=== PATIENT | female | born 1950 | race Caucasian/White ===

== ENCOUNTER 2020-10-04 11:11 | Outpatient (REF) | payer MEDICARE, OTHER, MEDICAID, SELFPAY ==
--- NOTE | 2020-10-04 11:49 | XR_ITS ---
EXAMINATION: XR ELBOW, RIGHT CLINICAL INFORMATION: Right elbow pain COMPARISON: None TECHNIQUE: AP, lateral, and oblique views of the right elbow. FINDINGS: The bones and soft tissues are normal. No fracture or joint effusion. Alignment is anatomic. Joint spaces are maintained. XR/XR elbow RT min 3V IMPRESSION: No evidence of fracture or dislocation.
== END 2020-10-04 11:12 | disposition home or self-care (01) ==
LOC: HO.XRAY 11:11
PROVIDERS: PCP Internal Medicine; Visit Provider Internal Medicine
DX: M25.521 Pain in right elbow (principal)
CPT/HCPCS: 73080

== ENCOUNTER → 2020-11-29 12:09 | Outpatient (BNVA) | payer MEDICARE, OTHER, SELFPAY | PROVIDERS: PCP Internal Medicine; Visit Provider Physician Assistant | DX: M77.11 Lateral epicondylitis, right elbow (principal) | CPT/HCPCS: 99202 ==

== ENCOUNTER 2021-03-25 10:33 | Outpatient (REF) | payer MEDICARE, SELFPAY ==
[2021-03-25 10:51] LABS: COVID-19 Test Negative (Negative)
== END 2021-03-25 10:34 | disposition home or self-care (01) ==
LOC: HO.LAB 10:33
PROVIDERS: Visit Provider Internal Medicine
DX: Z20.822 Contact with and (suspected) exposure to COVID-19 (principal)
CPT/HCPCS: 36415; 87635; C9803

== ENCOUNTER 2021-05-09 08:49 | Outpatient (REF) | payer MEDICARE, SELFPAY ==
--- NOTE | ~2021-05-09 | XR_ITS ---
EXAMINATION: XR CHEST CLINICAL INFORMATION: Rest before and COMPARISON: None TECHNIQUE: 2 views of the chest were obtained. FINDINGS: The cardiac and mediastinal contours are normal. The lungs are well inflated. The lungs are clear. There is no pleural effusion or pneumothorax. Bony structures are unremarkable. XR/XR chest 2V IMPRESSION: Well-inflated lungs. No evidence for acute disease in the chest.
== END 2021-05-09 08:50 | disposition home or self-care (01) ==
LOC: HO.XRAY 08:49
PROVIDERS: PCP Internal Medicine; Visit Provider Internal Medicine
DX: R49.9 Unspecified voice and resonance disorder (principal)
CPT/HCPCS: 71046

== ENCOUNTER 2021-06-27 08:37 | Outpatient (REF) | payer MEDICARE, OTHER, SELFPAY | END 2021-06-27 08:38 | disposition home or self-care (01) | LOC: HO.LAB 08:37 | PROVIDERS: PCP Internal Medicine; Visit Provider Internal Medicine | DX: Z20.822 Contact with and (suspected) exposure to COVID-19 (principal) | CPT/HCPCS: C9803; U0003; U0005 ==

== ENCOUNTER 2021-07-25 09:45 | Outpatient (RCR) | payer MEDICARE, OTHER, MEDICAID, SELFPAY | END 2021-08-15 09:55 | disposition home or self-care (01) | LOC: HO.OT 09:45 | PROVIDERS: PCP Internal Medicine; Visit Provider Physician Assistant | DX: M77.11 Lateral epicondylitis, right elbow (principal) | CPT/HCPCS: 97165 ==

== ENCOUNTER 2021-10-14 09:06 | Outpatient (REF) | payer MEDICARE, OTHER, MEDICAID, SELFPAY | END 2021-10-14 09:07 | disposition home or self-care (01) | LOC: HO.LAB 09:06 | PROVIDERS: PCP Internal Medicine; Visit Provider Internal Medicine | DX: Z20.822 Contact with and (suspected) exposure to COVID-19 (principal) | CPT/HCPCS: C9803; U0003; U0005 ==

== ENCOUNTER 2022-03-04 11:35 | Outpatient (REF) | payer MEDICARE, OTHER, MEDICAID, SELFPAY ==
--- NOTE | ~2022-03-04 | MM_ITS ---
EXAMINATION: MM SCREENING DIGITAL BREAST TOMOSYNTHESIS, BILATERAL CLINICAL INFORMATION: Screening. Asymptomatic. The lifetime risk of breast cancer based on the Tyrer-Cuzick Model is 2%. COMPARISON: Mammography: 01/23/2020, 01/14/2020, 03/26/2018 TECHNIQUE: Digital breast tomosynthesis is performed in both the craniocaudal and mediolateral oblique views along with computer-aided detection (CAD). Synthesized 2D images are generated from the tomosynthesis. FINDINGS: There are scattered areas of fibroglandular density (ACR BI-RADS breast composition Category b). Parenchymal pattern is similar to prior studies. There is no developing density or interval mass or architectural abnormality. There are no abnormal calcifications. The skin contours are smooth. MM/MM tomosynthesis screening BI IMPRESSION: No mammographic evidence of malignancy. ASSESSMENT: BI-RADS 1: Negative RECOMMENDATION: Routine annual mammography screening. This patient's information was entered into a reminder system with a target due date for their next mammogram.
== END 2022-03-04 11:36 | disposition home or self-care (01) ==
LOC: HO.MAMMO 11:35
PROVIDERS: PCP Internal Medicine; Visit Provider Internal Medicine
DX: Z12.31 Encounter for screening mammogram for malignant neoplasm of breast (principal)
CPT/HCPCS: 77063; 77067

== ENCOUNTER 2022-03-21 09:38 | Outpatient (REF) | payer MEDICARE, OTHER, MEDICAID, SELFPAY ==
[2022-03-21 10:10] LABS: MANUAL DIFF FLAG NO
[2022-03-21 10:34] LABS: Basophils Percent Auto 0.8 % (0-2); Eosinophils Absolute Auto 0.1 X10*3/uL (0.0-0.4); Eosinophils Percent Auto 2.2 % (0-4); Hematocrit 35.9 % (37.0-47.0); Hemoglobin 11.6 g/dl (12.0-16.0); Imm Gran Abs Auto 0.01 X10*3/uL (0.00-0.03); Imm Gran Pct Auto 0.2 % (0.0-0.4); Lymphocytes Absolute Auto 1.7 X10*3/uL (1.2-4.9); Lymphocytes Percent Auto 33.4 % (20-40); Mean Corpuscular HGB Conc 32.3 g/dl (31.0-35.0); Mean Corpuscular Hemoglobin 30.5 pg (27.0-33.0); Mean Corpuscular Volume 94.5 fL (80.0-98.0); Mean Platelet Volume 10.2 fL (9.4-12.3); Monocytes Absolute Auto 0.5 X10*3/uL (0.1-1.2); Monocytes Percent Auto 9.7 % (2-11); Neutrophils Absolute Auto 2.7 x10*3/uL (2.0-8.3); Neutrophils Percent Auto 53.7 % (45-73); Platelet Count 243 X10*3/uL (160-400); Red Cell Distribution Width 12.8 % (11.0-16.0)
[2022-03-21 10:45] LABS: Alanine Aminotransferase 15 U/L (0-31); Albumin Level 4.1 g/dL (3.5-5.0); Alkaline Phosphatase 81 U/L (39-117); Anion Gap 13 (12-20); Aspartate Amino Transferase 25 U/L (5-31); Bilirubin Total 0.5 mg/dL (0.0-1.0); Blood Urea Nitrogen 20 mg/dL (9-16); Calcium 9.9 mg/dL (8.4-10.2); Carbon Dioxide 24 mmol/L (22-29); Chloride 108 mmol/L (96-108); Cholesterol 249 mg/dL; Estimated Glomerular Filt Rate > 60; Glucose Random 106 mg/dL (60-115); HDL Cholesterol 79 mg/dL; LDL Cholesterol Calculated 159 mg/dl; Potassium 4.7 mmol/L (3.3-5.1); Sodium 140 mmol/L (135-145); Total Protein 6.9 g/dL (6.5-8.0); Triglycerides 56 mg/dL
[2022-03-21 10:54] LABS: Appearance Urine CLEAR; Color Urine YELLOW; Glucose Urine UA NEG (NEG); Leukocyte Esterase Urine NEG (NEG); Nitrite Urine NEG (NEG); PH 5.5 (5.0-8.0); Specific Gravity - Urine 1.025 (1.005-1.025); Urine Blood NEG (NEG); Urine Ketones NEG (NEG); Urine Protein NEG (NEG-TRACE)
== END 2022-03-21 09:39 | disposition home or self-care (01) ==
LOC: HO.LAB 09:38
PROVIDERS: PCP Internal Medicine; Visit Provider Internal Medicine
DX: E78.00 Pure hypercholesterolemia, unspecified (principal); D64.9 Anemia, unspecified; K57.90 Diverticulosis of intestine, part unspecified, without perforation or abscess without bleeding; R30.0 Dysuria
CPT/HCPCS: 36415; 80053; 80061; 81003; 85025

== ENCOUNTER 2022-07-17 09:47 | Outpatient (REF) | payer OTHER, SELFPAY ==
[2022-07-17 11:07] LABS: Cholesterol 223 mg/dL; HDL Cholesterol 77 mg/dL; LDL Cholesterol Calculated 133 mg/dl; Triglycerides 65 mg/dL
== END 2022-07-17 09:48 | disposition home or self-care (01) ==
LOC: HO.LAB 09:47
PROVIDERS: PCP Internal Medicine; Visit Provider Internal Medicine
DX: E78.00 Pure hypercholesterolemia, unspecified (principal)
CPT/HCPCS: 36415; 80061

== ENCOUNTER 2023-01-19 10:12 | Outpatient (REF) | payer OTHER, SELFPAY ==
[2023-01-21 12:09] LABS: HPV mRNA E6/E7 rflx Not Detected (Not Detected)
== END 2023-01-19 10:13 | disposition home or self-care (01) ==
LOC: HO.LNP 10:12
PROVIDERS: PCP Internal Medicine; Visit Provider Advanced Practice Midwife
DX: Z01.419 Encounter for gynecological examination (general) (routine) without abnormal findings (principal); Z11.51 Encounter for screening for human papillomavirus (HPV)
CPT/HCPCS: 87624; 88142

== ENCOUNTER 2023-01-19 12:42 | Outpatient (REF) | payer OTHER, SELFPAY ==
--- NOTE | ~2023-01-19 | XR_ITS ---
EXAMINATION: XR CHEST 2 VIEWS CLINICAL INFORMATION: Weight loss and lymphadenopathy. COMPARISON: Radiographs dated 05/09/2021. TECHNIQUE: Frontal and lateral views of the chest were obtained. FINDINGS: The heart, great vessels, pulmonary vasculature and mediastinum are normal. The lungs show no focal infiltrate, effusion or pneumothorax. There is no mass, nodule or thoracic lymphadenopathy. There is no acute osseous abnormality. XR/XR chest 2V IMPRESSION: No active cardiopulmonary disease.
[2023-01-19 13:36] LABS: MANUAL DIFF FLAG NO
[2023-01-19 13:45] LABS: Basophils Percent Auto 0.8 % (0-2); Eosinophils Percent Auto 0.8 % (0-4); Hematocrit 33.2 % (37.0-47.0); Hemoglobin 11.2 g/dl (12.0-16.0); Imm Gran Abs Auto 0.01 X10*3/uL (0.00-0.03); Imm Gran Pct Auto 0.2 % (0.0-0.4); Lymphocytes Percent Auto 38.1 % (20-40); Mean Corpuscular HGB Conc 33.7 g/dl (31.0-35.0); Mean Corpuscular Hemoglobin 31.4 pg (27.0-33.0); Mean Platelet Volume 9.9 fL (9.4-12.3); Monocytes Absolute Auto 0.5 X10*3/uL (0.1-1.2); Monocytes Percent Auto 8.8 % (2-11); Neutrophils Absolute Auto 2.6 x10*3/uL (2.0-8.3); Neutrophils Percent Auto 51.3 % (45-73); Platelet Count 221 X10*3/uL (160-400); Red Blood Count 3.57 X10*6/uL (4.20-5.50); Red Cell Distribution Width 12.9 % (11.0-16.0); White Blood Count 5.1 X10*3/uL (4.8-10.8)
[2023-01-19 14:11] LABS: Alanine Aminotransferase 16 U/L (0-31); Albumin Level 4.2 g/dL (3.5-5.0); Alkaline Phosphatase 75 U/L (39-117); Anion Gap 12 (12-20); Aspartate Amino Transferase 24 U/L (5-31); Bilirubin Total 0.4 mg/dL (0.0-1.0); Blood Urea Nitrogen 19 mg/dL (9-16); C Reactive Protein < 0.10 mg/dL (< or = 0.50); Calcium 9.4 mg/dL (8.4-10.2); Carbon Dioxide 28 mmol/L (22-29); Chloride 107 mmol/L (96-108); Estimated Glomerular Filt Rate > 60; Glucose Random 96 mg/dL (60-115); Lactate Dehydrogenase 219 U/L (122-220); Potassium 4.5 mmol/L (3.3-5.1); Sodium 142 mmol/L (135-145); Total Protein 6.5 g/dL (6.5-8.0)
== END 2023-01-19 12:43 | disposition home or self-care (01) ==
LOC: HO.10HDL 12:42
PROVIDERS: Visit Provider Internal Medicine
DX: R63.4 Abnormal weight loss (principal); M54.2 Cervicalgia; R59.1 Generalized enlarged lymph nodes
CPT/HCPCS: 36415; 71046; 80053; 83615; 85025; 86140

== ENCOUNTER 2023-02-16 09:29 | Outpatient (REF) | payer OTHER, SELFPAY ==
[2023-02-16 11:08] LABS: Cholesterol 235 mg/dL; HDL Cholesterol 77 mg/dL; LDL Cholesterol Calculated 144 mg/dl; Triglycerides 73 mg/dL
== END 2023-02-16 09:30 | disposition home or self-care (01) ==
LOC: HO.LAB 09:29
PROVIDERS: PCP Internal Medicine; Visit Provider Internal Medicine
DX: E78.00 Pure hypercholesterolemia, unspecified (principal)
CPT/HCPCS: 36415; 80061

== ENCOUNTER 2023-02-16 11:38 | Outpatient (REF) | payer OTHER, SELFPAY ==
[2023-02-16 14:03] LABS: MANUAL DIFF FLAG NO
[2023-02-16 14:19] LABS: Appearance Urine Clear; Color Urine Yellow; Glucose Urine UA Negative (Negative); Leukocyte Esterase Urine Trace (Negative); Nitrite Urine Negative (Negative); PH 7.5 (5.0-9.0); Specific Gravity - Urine <= 1.005 (1.005-1.025); UMIC TRIGGER UACC YES; Urine Blood Negative (Negative); Urine Ketones Negative (Negative); Urine Protein Negative (Neg-Trace)
[2023-02-16 14:21] LABS: Bacteria Urine None Seen (None Seen); Hyaline Casts Urine 0-2 /LPF (0-2); RBC Urine 0-2 /HPF (0-2); Squamous Epithelial Cell Urine 0-2 /HPF (0-2); WBC Urine 0-5 /HPF (0-5)
[2023-02-16 14:25] LABS: Basophils Percent Auto 0.9 % (0-2); Eosinophils Absolute Auto 0.1 X10*3/uL (0.0-0.4); Eosinophils Percent Auto 1.7 % (0-4); Hematocrit 36.3 % (37.0-47.0); Hemoglobin 11.9 g/dl (12.0-16.0); Lymphocytes Absolute Auto 1.5 X10*3/uL (1.2-4.9); Lymphocytes Percent Auto 31.7 % (20-40); Mean Corpuscular HGB Conc 32.8 g/dl (31.0-35.0); Mean Corpuscular Hemoglobin 30.5 pg (27.0-33.0); Mean Corpuscular Volume 93.1 fL (80.0-98.0); Mean Platelet Volume 10.9 fL (9.4-12.3); Monocytes Absolute Auto 0.5 X10*3/uL (0.1-1.2); Monocytes Percent Auto 10.9 % (2-11); Neutrophils Absolute Auto 2.5 x10*3/uL (2.0-8.3); Neutrophils Percent Auto 54.8 % (45-73); Platelet Count 217 X10*3/uL (160-400); Red Cell Distribution Width 12.4 % (11.0-16.0); White Blood Count 4.6 X10*3/uL (4.8-10.8)
[2023-02-16 14:45] LABS: Iron 44 mcg/dL (30-160); Percent Iron Saturation 17 % (15-50); Total Iron Binding Capacity 256 mcg/dL (228-428); Unsaturated Iron Binding 212 ug/dL
[2023-02-16 14:55] LABS: Vitamin B12 656 pg/mL (200-900)
== END 2023-02-16 11:39 | disposition home or self-care (01) ==
LOC: HO.10HDL 11:38
PROVIDERS: Visit Provider Internal Medicine
DX: D64.9 Anemia, unspecified (principal); R30.0 Dysuria
CPT/HCPCS: 36415; 81001; 81003; 82607; 83540; 85025; 87086

== ENCOUNTER 2023-03-31 12:11 | Outpatient (REF) | payer OTHER, SELFPAY ==
--- NOTE | ~2023-03-31 | MM_ITS ---
EXAMINATION: BONE DENSITOMETRY CLINICAL INDICATION: Asymptomatic menopausal state. COMPARISON: Baseline BD dated 10/20/2018. TECHNIQUE: Using a tarpipe DXA System (software version: 13.1) manufactured by [employer], dual-energy x-ray absorptiometry was performed of the lumbar spine and left hip. The images are of good technical quality. Summary results are attached. FINDINGS: AP SPINE L1-L4: Current: BMD 1.280 g/cm2, Z-score 3.1, T-score 0.8, normal, 6.8% decrease from baseline (<5% change is not significant). Baseline: BMD 1.374 g/cm2. LEFT FEMUR, NECK: Current: BMD 0.709 g/cm2, Z-score -0.1, T-score -2.4, osteopenia. Baseline: BMD 0.799 g/cm2. LEFT FEMUR, TOTAL: Current: BMD 0.704 g/cm2, Z-score 0.3, T-score -2.4, osteopenia, 11.0% decrease from baseline (<5% change is not significant). Baseline: BMD 0.791 g/cm2. IDENTIFIED RISK FACTORS: Secondary osteoporosis (early menopause). HISTORY OF FRACTURE: None listed. MEDICATIONS: Calcium supplement and/or multivitamin. Vitamin D. MM/XR DEXA axial skeleton IMPRESSION: 1. DIAGNOSIS: Osteopenia based on the lowest T-score value of -2.4 in the femoral neck and total femur applying World Health Organization criteria. 2. 10-YEAR FRACTURE RISK PREDICTION, FRAX: Major osteoporotic fracture (clinical spine, forearm, hip or shoulder) 13.1%. Hip fracture 4.1%. 3. Treatment Recommendations: NOF guidelines recommend consideration for treatment in postmenopausal women and men age 50 and older presenting with the following: -A hip or vertebral (clinical or morphometric) fracture. -T-score less than or equal to -2.5 at the femoral neck or spine after appropriate evaluation to exclude secondary causes. -Low bone mass at the hip or spine and a 10-year fracture probability by FRAX of greater than or equal to 3% for hip fracture or greater than or equal to 20% for major osteoporotic fracture based on the [place] adapted WHO algorithm. 4. Other Recommendations: All treatment decisions require clinical judgment and consideration of individual patient factors, including patient preferences, comorbidities, previous drug use, risk factors not captured in the FRAX model (e.g. frailty, falls, vitamin D deficiency, increased bone turnover, interval significant decline in bone density) and possible under or overestimation of fracture risk by FRAX. Additional medical evaluation for secondary cause of low bone mineral density may be appropriate. FUTURE SCAN RECOMMENDATION: People with diagnosed cases of osteoporosis or at high risk for fracture should have regular bone mineral density tests. For patients eligible for Medicare, routine testing is allowed once every 2 years. The testing frequency can be increased to one year for patients who have rapidly progressing disease, those who are receiving or discontinuing medical therapy to restore bone mass, or have additional risk factors.
--- NOTE | ~2023-03-31 | MM_ITS ---
EXAMINATION: MM SCREENING DIGITAL BREAST TOMOSYNTHESIS, BILATERAL CLINICAL INFORMATION: Screening. Asymptomatic. The lifetime risk of breast cancer based on the Tyrer-Cuzick Model is 2%. COMPARISON: Mammography: 03/04/2022, 01/23/2020, 01/14/2020, 03/26/2018 TECHNIQUE: Digital breast tomosynthesis is performed in both the craniocaudal and mediolateral oblique views along with computer-aided detection (CAD). Synthesized 2D images are generated from the tomosynthesis. FINDINGS: There are scattered areas of fibroglandular density (ACR BI-RADS breast composition Category b). There are no significant masses, abnormal calcifications, or other abnormalities. No architectural abnormality or developing density or significant change from prior studies. The axilla and skin contours are unremarkable. MM/MM tomosynthesis screening BI IMPRESSION: No mammographic evidence of malignancy. ASSESSMENT: BI-RADS 1: Negative RECOMMENDATION: Routine annual mammography screening. This patient's information was entered into a reminder system with a target due date for their next mammogram.
== END 2023-03-31 12:12 | disposition home or self-care (01) ==
LOC: HO.MAMMO 12:11
PROVIDERS: PCP Internal Medicine; Visit Provider Internal Medicine
DX: Z12.31 Encounter for screening mammogram for malignant neoplasm of breast (principal); Z13.820 Encounter for screening for osteoporosis; Z78.0 Asymptomatic menopausal state
CPT/HCPCS: 77063; 77067; 77080

== ENCOUNTER 2023-07-21 09:08 | Outpatient (REF) | payer OTHER, SELFPAY ==
[2023-07-21 09:24] LABS: MANUAL DIFF FLAG NO
[2023-07-21 09:58] LABS: Basophils Absolute Auto 0.1 X10*3/uL (0.0-0.2); Basophils Percent Auto 1.2 % (0-2); Eosinophils Absolute Auto 0.2 X10*3/uL (0.0-0.4); Eosinophils Percent Auto 5.4 % (0-4); Hematocrit 34.7 % (37.0-47.0); Hemoglobin 11.4 g/dl (12.0-16.0); Lymphocytes Absolute Auto 1.5 X10*3/uL (1.2-4.9); Lymphocytes Percent Auto 36.7 % (20-40); Mean Corpuscular HGB Conc 32.9 g/dl (31.0-35.0); Mean Corpuscular Hemoglobin 31.2 pg (27.0-33.0); Mean Corpuscular Volume 95.1 fL (80.0-98.0); Monocytes Absolute Auto 0.4 X10*3/uL (0.1-1.2); Monocytes Percent Auto 10.8 % (2-11); Neutrophils Absolute Auto 1.9 x10*3/uL (2.0-8.3); Neutrophils Percent Auto 45.9 % (45-73); Platelet Count 234 X10*3/uL (160-400); Red Blood Count 3.65 X10*6/uL (4.20-5.50); Red Cell Distribution Width 12.7 % (11.0-16.0); White Blood Count 4.1 X10*3/uL (4.8-10.8)
[2023-07-21 11:56] LABS: Anion Gap 11 (12-20); Blood Urea Nitrogen 14 mg/dL (9-16); Calcium 9.8 mg/dL (8.4-10.2); Carbon Dioxide 27 mmol/L (22-29); Chloride 106 mmol/L (96-108); Cholesterol 238 mg/dL (<200); Estimated Glomerular Filt Rate > 60; Glucose Fasting 96 mg/dL (60-99); HDL Cholesterol 73 mg/dL (>40); LDL Cholesterol Calculated 149 mg/dL (<100); Potassium 5.1 mmol/L (3.3-5.1); Sodium 139 mmol/L (135-145); Triglycerides 81 mg/dL (<150)
[2023-07-21 11:57] LABS: Vitamin D 25-OH Total 95.7 ng/mL (>30)
== END 2023-07-21 09:09 | disposition home or self-care (01) ==
LOC: HO.LAB 09:08
PROVIDERS: PCP Internal Medicine; Visit Provider Internal Medicine
DX: M85.80 Other specified disorders of bone density and structure, unspecified site (principal); E78.00 Pure hypercholesterolemia, unspecified; D64.9 Anemia, unspecified
CPT/HCPCS: 36415; 80048; 80061; 82306; 85025

== ENCOUNTER 2023-07-24 17:26 | Emergency (ER) | payer OTHER, SELFPAY ==
--- NOTE | ~2023-07-24 | XR_ITS ---
EXAMINATION: Left second toe CLINICAL INFORMATION: Pain. Trauma. COMPARISON: None available. TECHNIQUE: 3 views of the left second toe were obtained. FINDINGS: There are small bony fragments versus soft tissue calcification at the dorsal medial side of the head of the proximal phalange of the second toe. On the lateral view the cortex adjacent to this site of the proximal phalange appears to be slightly irregular though a definite fracture line is not apparent. These are new since the exam of December 18, 2015. There is no dislocation. Bone mineral density is normal. XR/XR toe LT min 2V IMPRESSION: 1. Small bony fragments versus soft tissue calcification at the dorsal medial side of the head of the proximal phalange of the second toe. These are new since December 18, 2015. 2. No definite fracture line is apparent.
[2023-07-24 17:50] VITALS: BP 185/101; PULSE 76; RESP 16; TEMP 36.2; O2SAT 99; BMI 18.6
--- NOTE | 2023-07-24 17:56 | ED.GENADULT ---
HPI - General Adult General Chief complaint: Extremity Problem Stated complaint: toe pain, redness, no injury Time Seen by Provider: 07/25/23 02:44 Source: patient Mode of arrival: ambulatory Limitations: no limitations History of Present Illness HPI narrative: Patient without any history of injury to her left foot noticed swelling and redness of the left 2nd toe spreading to the dorsum of the foot since yesterday no fever no chills Related Data Previous Rx's Medication Instructions Recorded cephalexin 500 mg capsule 500 mg PO QID 10 days #40 caps 07/25/23 Allergies Allergy/AdvReac Type Severity Reaction Status Date / Time indomethacin [Indomethacin] Allergy Mild CONFUSION Unverified 08/02/20 15:29 Sulfa (Sulfonamide Allergy Mild RASH Unverified 08/02/20 15:29 Antibiotics) Ciprofloxacin HCl Allergy Unknown rash Uncoded 06/28/20 00:00 Codeine Injection Allergy Unknown Unknown Uncoded 01/19/23 10:24 Review of Systems Review of Systems: Yes all other systems are reviewed and are negative [facility] Past Medical History Surgical History History of back surgery Social History Social History Alcohol intake: current Alcohol intake frequency: holidays/special occasions only Patient Tobacco Use Status: Former Tobacco user Smoked in Last 30 Days: No Use of substances other than those prescribed or required for medical reasons: No Advance Directives: No Advance Directives Information Provided: Yes Current occupational status: retired Current occupation: Right Handed Physical Exam ED Vital Signs: Vital Signs - 24 hr 07/24/23 17:50 07/24/23 22:03 07/25/23 02:10 Temperature 97.1 F 98.5 F 98.0 F Pulse Rate 76 69 71 Respiratory Rate 16 18 18 Blood Pressure 185/101 H 161/79 H 161/87 H Pulse Oximetry 99 100 99 Oxygen Delivery Method Room Air Room Air Room Air BMI result Body Mass Index 18.6 Extrem Ankle/foot/toe images: 1. Swollen with erythema and tenderness noted on the dorsum of the foot spreading from the 2nd toe Course Course Course Narrative: RME- 73-year-old female presents for evaluation of left 2nd toe pain is rating upper foot. Denies any injury or trauma that she can remember. There is some erythema extending from the toe up towards midfoot. Plan for labs including inflammatory markers and x-ray of the left 2nd toe Medications Administered Discontinued Medications Generic Name Dose Route Start Last Admin Trade Name Rigoberto PRN Reason Stop Dose Admin Cephalexin HCl 500 mg 07/25/23 03:06 07/25/23 03:45 Cephalexin 500 Mg Capsule PO 07/25/23 03:07 500 mg ONCE ONE Administration Medical Decision Making Medical Decision Making [facility] Narrative: Patient with cellulitis of the 2nd toe etiology not clear we will discharge patient home on Keflex Lab Data [facility] Lab Attestation statement: I reviewed the patient's lab results. 07/24/23 18:30 07/24/23 18:30 Labs: Lab Results 07/24/23 Range/Units 18:30 WBC 6.7 (4.8-10.8) X10*3/uL RBC 3.71 L (4.20-5.50) X10*6/uL Hgb 11.6 L (12.0-16.0) g/dl Hct 34.1 L (37.0-47.0) % MCV 91.9 (80.0-98.0) fL MCH 31.3 (27.0-33.0) pg MCHC 34.0 (31.0-35.0) g/dl RDW 12.4 (11.0-16.0) % Plt Count 241 (160-400) X10*3/uL MPV 9.5 (9.4-12.3) fL Immature Gran % (Auto) 0.2 (0.0-0.4) % Neut % (Auto) 61.5 (45-73) % Lymph % (Auto) 27.4 (20-40) % Baker % (Auto) 8.4 (2-11) % Eos % (Auto) 1.7 (0-4) % Baso % (Auto) 0.8 (0-2) % Lymph # (Auto) 1.8 (1.2-4.9) X10*3/uL Baker # (Auto) 0.6 (0.1-1.2) X10*3/uL Eos # (Auto) 0.1 (0.0-0.4) X10*3/uL Baso # (Auto) 0.1 (0.0-0.2) X10*3/uL Abs Immat Gran (auto) 0.01 (0.00-0.03) X10*3/uL Absolute Neuts (auto) 4.1 (2.0-8.3) x10*3/uL Absolute Nucleated RBC 0.000 (0.0-0.012) X10*3/uL Nucleated RBC % (auto) 0.0 (0.0-0.2) /100WBC ESR 8 (0-20) MM/HR Sodium 138 (135-145) mmol/L Potassium 3.7 D (3.3-5.1) mmol/L Chloride 102 (96-108) mmol/L Carbon Dioxide 26 (22-29) mmol/L Anion Gap 14 (12-20) BUN 10 (9-16) mg/dL Creatinine 0.80 (0.5-1.4) mg/dL Estim Creat Clear Calc 44.9 Estimated GFR > 60 Random Glucose 100 (60-115) mg/dL Calcium 10.2 (8.4-10.2) mg/dL Total Bilirubin 0.5 (0.0-1.0) mg/dL AST 25 (5-31) U/L ALT 16 (0-31) U/L Alkaline Phosphatase 74 (39-117) U/L Total Protein 7.4 (6.5-8.0) g/dL Albumin 4.6 (3.5-5.0) g/dL Lipase 16 (8-78) U/L Discharge Plan Discharge Clinical Impression: Cellulitis Patient Disposition: Home, Self-Care Instructions: Cellulitis (DC) Additional Instructions: Take antibiotic as prescribed Likely have infection to 2nd toe on the left foot Prescriptions: New cephalexin 500 mg capsule 500 mg PO QID 10 Days Qty: 40 0RF Interventions: ED Discharge Assessment Last Done: 07/25/23 03:51 Discharge Date/Time: 07/25/23 03:57
[2023-07-24 18:38] LABS: MANUAL DIFF FLAG NO
[2023-07-24 18:41] LABS: Basophils Absolute Auto 0.1 X10*3/uL (0.0-0.2); Basophils Percent Auto 0.8 % (0-2); Eosinophils Absolute Auto 0.1 X10*3/uL (0.0-0.4); Eosinophils Percent Auto 1.7 % (0-4); Hematocrit 34.1 % (37.0-47.0); Hemoglobin 11.6 g/dl (12.0-16.0); Imm Gran Abs Auto 0.01 X10*3/uL (0.00-0.03); Imm Gran Pct Auto 0.2 % (0.0-0.4); Lymphocytes Absolute Auto 1.8 X10*3/uL (1.2-4.9); Lymphocytes Percent Auto 27.4 % (20-40); Mean Corpuscular Hemoglobin 31.3 pg (27.0-33.0); Mean Corpuscular Volume 91.9 fL (80.0-98.0); Mean Platelet Volume 9.5 fL (9.4-12.3); Monocytes Absolute Auto 0.6 X10*3/uL (0.1-1.2); Monocytes Percent Auto 8.4 % (2-11); Neutrophils Absolute Auto 4.1 x10*3/uL (2.0-8.3); Neutrophils Percent Auto 61.5 % (45-73); Platelet Count 241 X10*3/uL (160-400); Red Blood Count 3.71 X10*6/uL (4.20-5.50); Red Cell Distribution Width 12.4 % (11.0-16.0); White Blood Count 6.7 X10*3/uL (4.8-10.8)
[2023-07-24 19:04] LABS: Alanine Aminotransferase 16 U/L (0-31); Albumin Level 4.6 g/dL (3.5-5.0); Alkaline Phosphatase 74 U/L (39-117); Anion Gap 14 (12-20); Aspartate Amino Transferase 25 U/L (5-31); Bilirubin Total 0.5 mg/dL (0.0-1.0); Blood Urea Nitrogen 10 mg/dL (9-16); Calcium 10.2 mg/dL (8.4-10.2); Carbon Dioxide 26 mmol/L (22-29); Chloride 102 mmol/L (96-108); Creatinine Clr Calc Pharmacy 44.9; Estimated Glomerular Filt Rate > 60; Glucose Random 100 mg/dL (60-115); Lipase 16 U/L (8-78); Potassium 3.7 mmol/L (3.3-5.1); Sodium 138 mmol/L (135-145); Total Protein 7.4 g/dL (6.5-8.0)
[2023-07-24 19:28] LABS: Erythrocyte Sedimentation Rate 8 MM/HR (0-20)
[2023-07-24 22:03] VITALS: BP 161/79; PULSE 69; RESP 18; TEMP 36.9; O2SAT 100
[2023-07-25 02:10] VITALS: BP 161/87; PULSE 71; RESP 18; TEMP 36.7; O2SAT 99
[2023-07-25] MEDS: cephALEXin 500 MG CAPSULE PO (03:45)
== END 2023-07-25 03:57 | disposition home or self-care (01) ==
PROVIDERS: Physician Assistant; Emergency Provider Internal Medicine; PCP Internal Medicine
DX: L03.032 Cellulitis of left toe (principal); M79.675 Pain in left toe(s)
CPT/HCPCS: 36415; 73660; 80053; 83690; 85025; 85652; 99283; 99284

== ENCOUNTER 2023-10-28 09:30 | Outpatient (REF) | payer OTHER, MEDICAID, SELFPAY ==
[2023-10-28 09:50] LABS: MANUAL DIFF FLAG NO
[2023-10-28 10:28] LABS: Basophils Absolute Auto 0.1 X10*3/uL (0.0-0.2); Basophils Percent Auto 1.1 % (0-2); Eosinophils Absolute Auto 0.1 X10*3/uL (0.0-0.4); Eosinophils Percent Auto 2.5 % (0-4); Hematocrit 35.5 % (37.0-47.0); Hemoglobin 11.5 g/dl (12.0-16.0); Imm Gran Abs Auto 0.01 X10*3/uL (0.00-0.03); Imm Gran Pct Auto 0.2 % (0.0-0.4); Lymphocytes Absolute Auto 1.7 X10*3/uL (1.2-4.9); Mean Corpuscular HGB Conc 32.4 g/dl (31.0-35.0); Mean Corpuscular Hemoglobin 30.3 pg (27.0-33.0); Mean Corpuscular Volume 93.7 fL (80.0-98.0); Mean Platelet Volume 9.9 fL (9.4-12.3); Monocytes Absolute Auto 0.5 X10*3/uL (0.1-1.2); Monocytes Percent Auto 11.4 % (2-11); Neutrophils Percent Auto 46.8 % (45-73); Platelet Count 236 X10*3/uL (160-400); Red Blood Count 3.79 X10*6/uL (4.20-5.50); Red Cell Distribution Width 12.2 % (11.0-16.0); White Blood Count 4.4 X10*3/uL (4.8-10.8)
[2023-10-28 11:03] LABS: Cholesterol 239 mg/dL (<200); HDL Cholesterol 76 mg/dL (>40); Iron 96 mcg/dL (30-160); LDL Cholesterol Calculated 149 mg/dL (<100); Percent Iron Saturation 37 % (15-50); Total Iron Binding Capacity 258 mcg/dL (228-428); Triglycerides 72 mg/dL (<150); Unsaturated Iron Binding 162 ug/dL
[2023-10-28 11:12] LABS: Free T4 (Free Thyroxine) 0.89 ng/dL (0.71-1.85); Thyroid Stimulating Hormone 3.43 uIU/mL (0.32-4.0)
[2023-10-28 11:16] LABS: Vitamin B12 894 pg/mL (200-900)
== END 2023-10-28 09:31 | disposition home or self-care (01) ==
LOC: HO.LAB 09:30
PROVIDERS: PCP Internal Medicine; Visit Provider Internal Medicine
DX: E78.00 Pure hypercholesterolemia, unspecified (principal); D64.9 Anemia, unspecified; R63.4 Abnormal weight loss
CPT/HCPCS: 36415; 80061; 82607; 83540; 84439; 84443; 85025

== ENCOUNTER 2024-03-07 09:47 | Outpatient (REF) | payer OTHER, MEDICAID, SELFPAY ==
--- NOTE | ~2024-03-07 | XR_ITS ---
EXAMINATION: XR PELVIS CLINICAL INFORMATION: History osteoarthritis, patient states bilateral pelvis and hip pain. COMPARISON: None available. TECHNIQUE: AP view of the pelvis. FINDINGS: Degenerative changes with rightward curvature in the imaged lower lumbar spine. 2 metallic clips overlie the lumbosacral junction and surgical clips overlie the sacrum. Bones are diffusely demineralized. Moderate degenerative changes in the bilateral sacroiliac joints and hips. Multiple small rounded pelvic calcifications. Pubic symphysis appears maintained. Visualization limited due to large amount of overlying bowel. XR/XR pelvis 1-2V IMPRESSION: 1. Moderate degenerative changes in the bilateral sacroiliac joints and hips. 2. Degenerative changes with rightward curvature in the imaged lower lumbar spine.
[2024-03-07 10:06] LABS: MANUAL DIFF FLAG NO
[2024-03-07 10:36] LABS: Basophils Percent Auto 0.9 % (0-2); Eosinophils Absolute Auto 0.1 X10*3/uL (0.0-0.4); Eosinophils Percent Auto 1.6 % (0-4); Hematocrit 37.2 % (37.0-47.0); Hemoglobin 11.9 g/dl (12.0-16.0); Imm Gran Abs Auto 0.01 X10*3/uL (0.00-0.03); Imm Gran Pct Auto 0.2 % (0.0-0.4); Lymphocytes Absolute Auto 1.7 X10*3/uL (1.2-4.9); Lymphocytes Percent Auto 38.3 % (20-40); Mean Corpuscular Hemoglobin 30.5 pg (27.0-33.0); Mean Corpuscular Volume 95.4 fL (80.0-98.0); Mean Platelet Volume 10.3 fL (9.4-12.3); Monocytes Absolute Auto 0.4 X10*3/uL (0.1-1.2); Monocytes Percent Auto 9.4 % (2-11); Neutrophils Absolute Auto 2.2 x10*3/uL (2.0-8.3); Neutrophils Percent Auto 49.6 % (45-73); Platelet Count 225 X10*3/uL (160-400); Red Cell Distribution Width 12.7 % (11.0-16.0); White Blood Count 4.4 X10*3/uL (4.8-10.8)
[2024-03-07 11:18] LABS: Iron 102 mcg/dL (30-160); Percent Iron Saturation 35 % (15-50); Total Iron Binding Capacity 293 mcg/dL (228-428); Unsaturated Iron Binding 191 ug/dL
== END 2024-03-07 09:48 | disposition home or self-care (01) ==
LOC: HO.LAB 09:47
PROVIDERS: PCP Internal Medicine; Visit Provider Internal Medicine
DX: R10.2 Pelvic and perineal pain (principal); D64.9 Anemia, unspecified
CPT/HCPCS: 36415; 72170; 83540; 85025

== ENCOUNTER 2024-08-02 11:30 | Outpatient (REF) | payer OTHER, SELFPAY ==
[2024-08-02 12:16] LABS: Appearance Urine Clear; Color Urine Yellow; Glucose Urine UA Negative (Negative); Leukocyte Esterase Urine Moderate (2+) (Negative); Nitrite Urine Negative (Negative); Specific Gravity - Urine <= 1.005 (1.005-1.025); UMIC TRIGGER UACC YES; Urine Blood Negative (Negative); Urine Ketones Negative (Negative); Urine Protein Negative (Neg-Trace)
[2024-08-02 12:22] LABS: Bacteria Urine None Seen (None Seen); Hyaline Casts Urine 0-2 /LPF (0-2); RBC Urine 0-2 /HPF (0-2); Squamous Epithelial Cell Urine 0-2 /HPF (0-2); UACC Culture Trigger YES; WBC Urine 21-50 /HPF (0-5)
== END 2024-08-02 11:31 | disposition home or self-care (01) ==
LOC: HO.LAB 11:30
PROVIDERS: PCP Internal Medicine; Visit Provider Internal Medicine
DX: R30.0 Dysuria (principal)
CPT/HCPCS: 81001; 87086; 87088; 87186

== ENCOUNTER 2024-08-15 16:22 | Outpatient (REF) | payer OTHER, SELFPAY ==
[2024-08-15 17:07] LABS: Appearance Urine Clear; Color Urine Yellow; Glucose Urine UA Negative (Negative); Leukocyte Esterase Urine Trace (Negative); Nitrite Urine Negative (Negative); PH 5.5 (5.0-9.0); Specific Gravity - Urine 1.015 (1.005-1.025); UMIC TRIGGER UA YES; Urine Blood Negative (Negative); Urine Ketones Trace mg/dL (Negative); Urine Protein Negative (Neg-Trace)
[2024-08-15 17:32] LABS: Bacteria Urine None Seen (None Seen); RBC Urine 0-2 /HPF (0-2); Squamous Epithelial Cell Urine 0-2 /HPF (0-2); WBC Urine 0-5 /HPF (0-5)
== END 2024-08-15 16:23 | disposition home or self-care (01) ==
LOC: HO.LAB 16:22
PROVIDERS: PCP Internal Medicine; Visit Provider Internal Medicine
DX: R30.0 Dysuria (principal)
CPT/HCPCS: 81001; 87086

== ENCOUNTER 2024-08-16 20:16 | Outpatient (REF) | payer OTHER, SELFPAY ==
[2024-08-16 21:32] LABS: CDiff Gene PCR POSITIVE (Negative)
[2024-08-16 22:07] LABS: CDiff Toxin Negative (Negative)
[2024-08-16 22:08] LABS: CDIFF Internal ctrl Dots and bkg OK (V)
== END 2024-08-16 20:17 | disposition home or self-care (01) ==
LOC: HO.LAB 20:16
PROVIDERS: PCP Internal Medicine; Visit Provider Internal Medicine
DX: R19.7 Diarrhea, unspecified (principal); R10.9 Unspecified abdominal pain
CPT/HCPCS: 87324; 87493

== ENCOUNTER 2024-11-24 10:19 | Outpatient (REF) | payer OTHER, SELFPAY ==
[2024-11-24 10:42] LABS: MANUAL DIFF FLAG NO
[2024-11-24 10:52] LABS: Basophils Percent Auto 0.8 % (0-2); Eosinophils Absolute Auto 0.1 X10*3/uL (0.0-0.4); Hemoglobin 11.6 g/dl (12.0-16.0); Imm Gran Abs Auto 0.01 X10*3/uL (0.00-0.03); Imm Gran Pct Auto 0.3 % (0.0-0.4); Lymphocytes Absolute Auto 1.6 X10*3/uL (1.2-4.9); Lymphocytes Percent Auto 40.7 % (20-40); Mean Corpuscular HGB Conc 33.1 g/dl (31.0-35.0); Mean Corpuscular Hemoglobin 30.9 pg (27.0-33.0); Mean Corpuscular Volume 93.1 fL (80.0-98.0); Mean Platelet Volume 9.6 fL (9.4-12.3); Monocytes Absolute Auto 0.4 X10*3/uL (0.1-1.2); Monocytes Percent Auto 9.8 % (2-11); Neutrophils Absolute Auto 1.9 x10*3/uL (2.0-8.3); Neutrophils Percent Auto 46.4 % (45-73); Platelet Count 226 X10*3/uL (160-400); Red Blood Count 3.76 X10*6/uL (4.20-5.50); Red Cell Distribution Width 12.6 % (11.0-16.0)
[2024-11-24 11:38] LABS: Alanine Aminotransferase 17 U/L (0-31); Albumin Level 4.1 g/dL (3.5-5.0); Anion Gap 10 (12-20); Aspartate Amino Transferase 27 U/L (5-31); Bilirubin Total 0.5 mg/dL (0.0-1.0); Blood Urea Nitrogen 14 mg/dL (9-16); Calcium 9.5 mg/dL (8.4-10.2); Carbon Dioxide 27 mmol/L (22-29); Chloride 105 mmol/L (96-108); Cholesterol 242 mg/dL (<200); Estimated Glomerular Filt Rate > 60; Glucose Fasting 97 mg/dL (60-99); HDL Cholesterol 69 mg/dL (>40); LDL Cholesterol Calculated 150 mg/dL (<100); Potassium 4.2 mmol/L (3.3-5.1); Sodium 138 mmol/L (135-145); Total Protein 6.8 g/dL (6.5-8.0); Triglycerides 117 mg/dL (<150)
[2024-11-24 12:27] LABS: Alkaline Phosphatase 74 U/L (39-117)
== END 2024-11-24 10:20 | disposition home or self-care (01) ==
LOC: HO.LAB 10:19
PROVIDERS: PCP Internal Medicine; Visit Provider Internal Medicine
DX: E78.00 Pure hypercholesterolemia, unspecified (principal); K57.90 Diverticulosis of intestine, part unspecified, without perforation or abscess without bleeding; M81.0 Age-related osteoporosis without current pathological fracture
CPT/HCPCS: 36415; 80053; 80061; 82306; 85025

== ENCOUNTER 2025-05-24 10:29 | Emergency (ER) | payer OTHER, SELFPAY ==
[2025-05-24 10:32] VITALS: BP 170/86; PULSE 71; RESP 16; TEMP 36.7; O2SAT 96; BMI 19.6
[2025-05-24 10:50] LABS: Appearance Urine Cloudy; Glucose Urine UA Negative (Negative); PH 6.5 (5.0-9.0); Specific Gravity - Urine 1.010 (1.005-1.025); UMIC TRIGGER UACC YES
[2025-05-24 11:13] LABS: UACC Culture Trigger YES
[2025-05-24 12:11] VITALS: BP 151/79; PULSE 60; RESP 16; TEMP 36.1; O2SAT 98
--- NOTE | 2025-05-24 12:24 | ED_ITS ---
HPI - Female Genitourinary General Chief complaint: Urogenital-Female Stated complaint: UTI? Time Seen by Provider: 05/24/25 11:56 Source: patient Mode of arrival: ambulatory Limitations: no limitations History of Present Illness ED Provider: HPI Narrative: Patient is presenting with dysuria, urinary frequency, and cloudy urine for the past 4 days, in between PCPs no fevers or chills no nausea no vomiting no vaginal discharge. Last UTI 6 months ago Related Data Previous Rx's ?Medication ?Instructions ?Recorded cephalexin 500 mg capsule 500 mg PO QID 10 days #40 ca ps 07/25/23 cefuroxime axetil 500 mg tablet 500 mg PO BID 5 days # 10 tabs 05/24/25 phenazopyridine 200 mg tablet 200 mg PO TID PRN dysuri a #10 tabs 05/24/25 (Pyridium) Allergies Allergy/AdvReac Type Severity Reaction Status Date / Time indomethacin (Indomethacin) Allergy Mild CONFUSION Verified 05/24/25 10:35 Sulfa (Sulfonamide Allergy Mild RASH Verified 05/24/25 10:35 Antibiotics) Codeine Injection Allergy Intermediate Swelling Uncoded 05/24/25 10:32 Ciprofloxacin HCl Allergy Unknown rash Uncoded 06/28/20 00:00 Review of Systems Constitutional: Constitutional: Reports as per [facility] Past Medical History Surgical History History of back surgery Social History Social History Alcohol intake: current Alcohol intake frequency: holidays/special occasions only Patient Tobacco Use Status: Former Tobacco user Advance Directives: No Advance Directives Information Provided: Yes Current occupational status: retired Current occupation: Right Handed Physical Exam Vital Signs: Vital Signs: Last Vital Signs Temp 97.0 F 05/24/25 12:11 Pulse 60 05/24/25 12:11 Resp 16 05/24/25 12:11 BP 151/79 H 05/24/25 12:11 Pulse Ox 98 05/24/25 12:11 O2 Del Method Room Air 05/24/25 12:11 BMI result Body Mass Index 19.6 Const: Other: * Gen: ?Overall well-appearing patient * Abd: ?Bowel sounds are present, no tenderness no rebound no rigidity * Skin: Warm, dry, intact, * Neuro: ?Alert and oriented x3, moving upper and lower extremities symmetrically, no obvious facial asymmetry noted Medications Administered Discontinued Medications Generic Name Dose Route Start Last Admin Trade Name Rigoberto PRN Reason Stop Dose Admin Cefuroxime Axetil 500 mg 05/24/25 11:00 05/24/25 11:35 Cefuroxime Axetil 500 Mg Tablet PO 05/24/25 11:01 500 mg ONCE ONE Administration Medical Decision Making Medical Decision Making [facility] Narrative: Well-appearing patient presenting with the urinary symptoms, urine came back positive for UTI, she has had pansensitive E coli in the past, was started on cefuroxime, we will continue that, otherwise benign abdominal exam, nondiabetic to suspect candidal infection and no rashes to suspect herpes etc. Differential Diagnosis Pyelonephritis, renal colic, candidal infection Lab Data Labs: Lab Results 05/24/25 Range/Units 10:44 Urine Color Yellow Urine Appearance Cloudy Urine pH 6.5 (5.0-9.0) Ur Specific Dexter 1.010 (1.005-1.025) Urine Protein Negative (Neg-Trace) mg/dL Urine Glucose (UA) Negative (Negative) mg/dL Urine Ketones Negative (Negative) mg/dL Urine Blood Small (1+) H (Negative) Urine Nitrite Positive H (Negative) Ur Leukocyte Esterase Large (3+) H (Negative) Urine RBC 0-2 (0-2) /HPF Urine WBC >50 H (0-5) /HPF Ur Squamous Epith Cells 0-2 (0-2) /HPF Urine Bacteria 4+ (None Seen) Hyaline Casts 0-2 (0-2) /LPF Discharge Plan Discharge Clinical Impression: Urinary tract infection Qualifiers: Urinary tract infection type: acute cystitis Hematuria presence: without hematuria Qualified Code(s): N30.00 - Acute cystitis without hematuria Patient Disposition: Home, Self-Care Instructions: Urinary Tract Infection in Women (ED) Additional Instructions: Your urinalysis consistent with urinary tract infection, take another dose of antibiotic in the next 12 hours, you can take Pyridium it is used to treat burning with urination, it does turn your urine orange and tears as well, I have checked your prior urine culture when you had a UTI and the antibiotic lip prescribing should cover the bacteria that caused UR infection last time. Any worsening symptoms concerns come back to the ER Prescriptions: New cefuroxime axetil 500 mg tablet 500 mg PO BID 5 Days Qty: 10 0RF phenazopyridine [Pyridium] 200 mg tablet 200 mg PO TID PRN (Reason: dysuria) Qty: 10 0RF No Action cephalexin 500 mg capsule 500 mg PO QID 10 Days Qty: 40 0RF Print Language: Turkish
[2025-05-24 12:41] VITALS: BP 151/79; PULSE 60; RESP 16; TEMP 36.1; O2SAT 98
== END 2025-05-24 12:42 | disposition home or self-care (01) ==
PROVIDERS: Emergency Provider Emergency Medicine; PCP Internal Medicine
DX: N30.00 Acute cystitis without hematuria (principal); R30.0 Dysuria; R35.0 Frequency of micturition; Z87.891 Personal history of nicotine dependence; Z79.899 Other long term (current) drug therapy
CPT/HCPCS: 81001; 87086; 87088; 87186; 99283; 99284

== ENCOUNTER 2025-07-03 12:13 | Outpatient (AMB) | payer OTHER, SELFPAY ==
--- NOTE | 2025-07-03 12:34 | MHC.PC.OV ---
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 Accompanied by: Self / Same As Patient Allergies indomethacin (Indomethacin) Allergy (Mild, Verified 07/03/25 12:54) CONFUSION Sulfa (Sulfonamide Antibiotics) Allergy (Mild, Verified 07/03/25 12:54) RASH cefuroxime Adverse Reaction (Severe, Verified 07/03/25 12:54) Diarrhea Codeine Injection Allergy (Intermediate, Uncoded 07/03/25 12:54) Swelling Ciprofloxacin HCl Allergy (Unknown, Uncoded 07/03/25 12:54) rash Medication List - Last Reconciled 07/03/25 by Rozina Francisco MD cefuroxime axetil 500 mg PO BID 5 days cephalexin 500 mg PO QID 10 days phenazopyridine (Pyridium) 200 mg PO TID PRN Tobacco use date assessed: 07/03/25 Fall risk assessment: No Falls in past year Last assessed Fall Risk: 07/03/25 Dental Screening Dental Screen Date: 07/03/25 Did you have a dental visit in the last 12 months?: No Did you have a dental problem in the last 6 months where you did not have access to dental care?: No Was dental information given to patient?: No HPI HPI Comments History of Present Illness Details The patient is a 75-year-old female presenting with a need to transfer care from a retiring doctor and to address ongoing health maintenance and management of chronic conditions. She has a history of pure hypercholesterolemia, for which a lipid panel has been ordered to assess current levels. Anemia has been noted, and a hemoglobin test has been ordered to further evaluate this condition. The patient also has leukopenia, with a noted low white blood cell count, and biscytopenia, which will be monitored with further testing. In terms of preventative care, her last mammogram and bone density scan were both conducted in 2022 and was showing osteopenia, and she is due for a colonoscopy in 2028, following her last one in 2019. [facility] Surgical History History of back surgery Social History Household Members: Children Housing: House Alcohol intake: current Alcohol intake frequency: holidays/special occasions only Patient Tobacco Use Status: Former Tobacco user e-Cigarette/Vaping Use: Never Used service: Yes Current occupational status: retired Current occupation: Right Handed Cognitive needs: No Hearing needs: Yes Vision needs: Yes Questionnaire Thrive Questionnaire Date Thrive assessed: 07/03/25 AUDIT C Alcohol Use Questionnaire (AUDIT-C) 1. How often do you have a drink containing alcohol?: Monthly or less Total Score: 1 IVANNA-7 AMB Questionnaire IVANNA-7 Date IVANNA - 7 assessed: 07/03/25 Source: Developed by Drs. Rajiv Barnes, Merle Pruett, Janes Garcia and colleagues, with an educational talib from [employer]. Review of Systems Const All systems reviewed & are unremarkable except as noted in HPI and below Card Denies chest pain at rest, Denies chest pain with activity, Denies edema, Denies irregular heart rhythm, Denies claudication, Denies dyspnea, Denies dyspnea on exertion, Denies orthopnea, Denies paroxysmal nocturnal dyspnea and Denies slow heart rate Resp Denies cough, Denies dyspnea and Denies dyspnea on exertion GI Denies abdominal pain, Denies change in bowel habits, Denies excessive flatus, Denies nausea and Denies vomiting Physical exam (Primary Care) Vital Signs: Last Vital Signs Temp 97.1 F 07/03/25 12:35 Pulse 75 07/03/25 12:35 Resp 18 07/03/25 12:35 BP 148/68 H 07/03/25 12:35 Pulse Ox 98 07/03/25 12:35 Oxygen Delivery Method Room Air 07/03/25 12:35 BMI result Body Mass Index 19.9 Tobacco/Smoking Status: Tobacco use Status Tobacco use date assessed 07/03/25 07/03/25 12:43 Patient Tobacco Use Status Former Tobacco user 07/03/25 12:50 e-Cigarette/Vaping Use Never Used 07/03/25 12:55 Thrive Assessment: Date of Thrive Assessment Date Thrive assessed 07/03/25 07/03/25 12:43 Resp Effort & Inspection: normal respiratory effort Auscultation: clear to auscultation bilaterally Cardio Jugular venous distension: no JVD Rate: regular rate Rhythm: regular rhythm Heart sounds: S1 normal heart sound present and S2 normal heart sound present Extrem General: Yes full ROM Coding Level of Care Code Est Pt Level 4 (71125) Complex EM visit Add On G2211 Diagnoses Pure hypercholesterolemia E78.00 Bicytopenia D75.89 Elevated blood pressure reading without diagnosis of hypertension R03.0 Osteopenia M85.80 Time Spent (min) 21 Assessment & Plan Assessment & Plan (1) Pure hypercholesterolemia: Code(s): E78.00 - Pure hypercholesterolemia, unspecified Category: Medical (2) Bicytopenia: Code(s): D75.89 - Other specified diseases of blood and blood-forming organs Category: Medical (3) Elevated blood pressure reading without diagnosis of hypertension: Code(s): R03.0 - Elevated blood-pressure reading, without diagnosis of hypertension Category: Medical (4) Osteopenia: Code(s): M85.80 - Other specified disorders of bone density and structure, unspecified site Category: Medical Plan A lipid panel has been ordered to evaluate the patient's hypercholesterolemia, and appropriate management will be determined based on the results. For anemia, a hemoglobin test has been ordered to further assess the condition and guide treatment options. The patient's leukopenia and biscytopenia will be monitored with additional testing to determine any necessary interventions. Preventative care measures include scheduling a mammogram and bone density scan, as well as planning for a colonoscopy in 2028. Patient was informed and verbally consented to the use of an ambient scribe for clinic note documentation during this visit. Orders: Orders Comprehensive [facility]. Panel Fast 6 Months E78.00 - Pure hypercholesterolemia, unspecified Complete Blood Count Auto Diff 6 Months D64.9 - Anemia, unspecified IRON PROFILE 6 Months D64.9 - Anemia, unspecified Lipid Panel 6 Months E78.5 - Hyperlipidemia, unspecified XR DEXA axial skeleton Today Z78.0 - Asymptomatic menopausal state
[2025-07-03 12:35] VITALS: BP 148/68; PULSE 75; RESP 18; TEMP 36.2; O2SAT 98; BMI 19.9
== END 2025-07-03 13:11 | disposition home or self-care (01) ==
LOC: HO.HMCH 12:14
PROVIDERS: PCP Internal Medicine; Visit Provider Internal Medicine
DX: E78.00 Pure hypercholesterolemia, unspecified (principal); D75.89 Other specified diseases of blood and blood-forming organs; R03.0 Elevated blood-pressure reading, without diagnosis of hypertension; M85.80 Other specified disorders of bone density and structure, unspecified site

== ENCOUNTER → 2025-07-03 12:13 | Outpatient (BNVA) | payer OTHER, SELFPAY | PROVIDERS: PCP Internal Medicine; Visit Provider Internal Medicine | DX: E78.00 Pure hypercholesterolemia, unspecified (principal); R03.0 Elevated blood-pressure reading, without diagnosis of hypertension; M85.80 Other specified disorders of bone density and structure, unspecified site; D75.89 Other specified diseases of blood and blood-forming organs | CPT/HCPCS: 99212 ==

== ENCOUNTER 2025-07-06 11:12 | Outpatient (AMB) | payer OTHER, SELFPAY | END 2025-07-06 14:12 | disposition home or self-care (01) | LOC: HO.HMGAL 11:12 | PROVIDERS: PCP Internal Medicine; Visit Provider Registered Nurse Emergency | DX: J30.89 Other allergic rhinitis (principal) | CPT/HCPCS: 95117; 95165 ==

== ENCOUNTER 2025-07-31 08:41 | Outpatient (AMB) | payer MEDICARE, OTHER, SELFPAY | END 2025-07-31 08:43 | disposition home or self-care (01) | LOC: HO.HMGAL 08:41 | PROVIDERS: PCP Internal Medicine; Visit Provider Registered Nurse Emergency | DX: J30.89 Other allergic rhinitis (principal) | CPT/HCPCS: 95117; 95165 ==

== ENCOUNTER 2025-08-17 09:20 | Outpatient (REF) | payer MEDICARE, SELFPAY ==
--- NOTE | ~2025-08-17 | MM_ITS ---
EXAMINATION: BONE DENSITOMETRY CLINICAL INDICATION: Postmenopausal COMPARISON: Previous exams March 2023 and October 2018. TECHNIQUE: Using a [employer] DXA System (software version: 13.1) manufactured by [employer], dual-energy x-ray absorptiometry was performed of the lumbar spine and left hip. The images are of good technical quality. Summary results are attached. FINDINGS: AP SPINE L1-L4: BMD 1.32 g/cm2, Z-score 3.5, T-score 1.2, normal but decreased by 4% compared to previous exam. . LEFT FEMUR, NECK: BMD 0.516 g/cm2, Z-score -1.4, T-score -3.8, osteoporosis, decreased by 35.4% compared to previous exam. LEFT FEMUR, TOTAL: BMD 0.461 g/cm2, Z-score -2.1, T-score -4.3 , osteoporosis, decreased by 41.7% compared to prior exams IDENTIFIED RISK FACTORS: None listed. HISTORY OF FRACTURE: None listed. MEDICATIONS: Vitamin D, calcium supplement and multivitamin MM/XR DEXA axial skeleton IMPRESSION: 1. DIAGNOSIS: Osteoporosis based on the lowest T-score value of -4.3 in the left total femur applying World Health Organization criteria. 2. Fracture risk is high. 3. Treatment Recommendations: NOF guidelines recommend consideration for treatment in postmenopausal women and men age 50 and older presenting with the following: -A hip or vertebral (clinical or morphometric) fracture. -T-score less than or equal to -2.5 at the femoral neck or spine after appropriate evaluation to exclude secondary causes. -Low bone mass at the hip or spine and a 10-year fracture probability by FRAX of greater than or equal to 3% for hip fracture or greater than or equal to 20% for major osteoporotic fracture based on the [place] adapted WHO algorithm. 4. Other Recommendations: All treatment decisions require clinical judgment and consideration of individual patient factors, including patient preferences, comorbidities, previous drug use, risk factors not captured in the FRAX model (e.g. frailty, falls, vitamin D deficiency, increased bone turnover, interval significant decline in bone density) and possible under or overestimation of fracture risk by FRAX. Additional medical evaluation for secondary cause of low bone mineral density may be appropriate. FUTURE SCAN RECOMMENDATION: People with diagnosed cases of osteoporosis or at high risk for fracture should have regular bone mineral density tests. For patients eligible for Medicare, routine testing is allowed once every 2 years. The testing frequency can be increased to one year for patients who have rapidly progressing disease, those who are receiving or discontinuing medical therapy to restore bone mass, or have additional risk factors. Electronically signed by: Carlita Fletcher MD 08/17/2025 04:19 PM EDT RP
== END 2025-08-17 09:21 | disposition home or self-care (01) ==
LOC: HO.MAMMO 09:20
PROVIDERS: PCP Internal Medicine; Visit Provider Internal Medicine
DX: Z13.820 Encounter for screening for osteoporosis (principal); Z78.0 Asymptomatic menopausal state
CPT/HCPCS: 77080

== ENCOUNTER → 2025-08-17 10:00 | Outpatient (BNV) | payer MEDICARE, SELFPAY | PROVIDERS: PCP Internal Medicine; Visit Provider Radiology Diagnostic Radiology | DX: E28.39 Other primary ovarian failure (principal) | CPT/HCPCS: 77080 ==

== ENCOUNTER 2025-09-25 10:37 | Outpatient (AMB) | payer MEDICARE, SELFPAY | END 2025-09-25 10:38 | disposition home or self-care (01) | LOC: HO.HMGAL 10:37 | PROVIDERS: PCP Internal Medicine; Visit Provider Registered Nurse Emergency | DX: J30.89 Other allergic rhinitis (principal) | CPT/HCPCS: 95117; 95165 ==

== ENCOUNTER 2025-10-25 11:30 | Outpatient (AMB) | payer MEDICARE, SELFPAY | END 2025-10-25 11:30 | disposition home or self-care (01) | LOC: HO.HMGAL 11:30 | PROVIDERS: PCP Internal Medicine; Visit Provider Registered Nurse Emergency | DX: J30.89 Other allergic rhinitis (principal) | CPT/HCPCS: 95117; 95165 ==

== ENCOUNTER 2025-10-25 12:35 | Outpatient (AMB) | payer MEDICARE, SELFPAY ==
[2025-10-25 12:57] VITALS: BP 142/82; PULSE 71; O2SAT 99
--- NOTE | 2025-10-25 12:57 | A.OFFVIS_ITS ---
Vital Signs 10/25/25 12:57 Height 5 ft 1 in Weight 105 lb 13.15 oz BMI 20.0 BP 142/82 H Blood Pressure Location Rt brachial Position Sitting Pulse 71 Pulse Source Pulse Oximeter Pulse Oximetry (%) 99 Oxygen Delivery Method Room Air Intake Visit Reasons: Age-related osteoporosis without current pathologi Intake Note: New patient internally referred by PCP for Age-related Osteoporosis. 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 Accompanied by: Self / Same As Patient Allergies indomethacin (Indomethacin) Allergy (Mild, Verified 10/25/25 13:20) CONFUSION Sulfa (Sulfonamide Antibiotics) Allergy (Mild, Verified 10/25/25 13:20) RASH cefuroxime Adverse Reaction (Severe, Verified 10/25/25 13:20) Diarrhea Codeine Injection Allergy (Intermediate, Uncoded 10/25/25 13:20) Swelling Ciprofloxacin HCl Allergy (Unknown, Uncoded 10/25/25 13:20) rash Medication List - Last Reconciled 10/25/25 by Rajiv Herbert MD cholecalciferol (vitamin D3) 50 mcg PO DAILY HPI Comments Details: 75 YO Female is seen in consultation at the request of PCP for Osteoporosis. First diagnosed in recently. Not Received treatment in the past . No history of pathologic fracture or ONJ. Has several servings of dietary calcium per day in the form of cheese, cabbage, broccoli, cereal . Takes Calcium supplement 1200 mg daily in divided doses. Takes 2000 IU of Vitamin D daily. Denies ever using PPI, anticoagulant, antiepileptic or glucocorticoid medication. Not Does weight bearing exercise Fracture history: No Height loss: Yes POLICE MANAGER history: Menarche at age 13-14- Menoapause age 40s took ERT for short term No history of Kidney stones: Denies family history of Osteoporosis or hip fracture. UTD on dental cleanings and sees dentist every 6 months has dentures . No planned upcoming dental work or extractions. DXA dated :08/17/25 FINDINGS: AP SPINE L1-L4: BMD 1.32 g/cm2, Z-score 3.5, T-score 1.2, normal but decreased by 4% compared to previous exam. . LEFT FEMUR, NECK: BMD 0.516 g/cm2, Z-score -1.4, T-score -3.8, osteoporosis, decreased by 35.4% compared to previous exam. LEFT FEMUR, TOTAL: BMD 0.461 g/cm2, Z-score -2.1, T-score -4.3 , osteoporosis, decreased by 41.7% compared to prior exams IDENTIFIED RISK FACTORS: None listed. HISTORY OF FRACTURE: None listed. MEDICATIONS: Vitamin D, calcium supplement and multivitamin MM/XR DEXA axial skeleton IMPRESSION: 1. DIAGNOSIS: Osteoporosis based on the lowest T-score value of -4.3 in the left total femur applying World Health Organization criteria. 2. Fracture risk is high. 3. Treatment Recommendations: NOF guidelines recommend consideration for treatment in postmenopausal women and men age 50 and old Labs: [facility] Medical History (Updated 10/25/25 @ 13:22 by PAULETTE Crawford) History of high blood pressure Hx of osteoporosis Hx of osteopenia Surgical History History of back surgery Family History Father No problems noted. Mother No problems noted. Social History Household Members: Children Housing: House Alcohol intake: current Alcohol intake frequency: holidays/special occasions only Patient Tobacco Use Status: Former Tobacco user e-Cigarette/Vaping Use: Never Used service: Yes Current occupational status: retired Current occupation: Right Handed Cognitive needs: No Hearing needs: Yes Vision needs: Yes Physical Exam Vital Signs: Last Vital Signs Pulse 71 10/25/25 12:57 BP 142/82 H 10/25/25 12:57 Pulse Ox 99 10/25/25 12:57 Oxygen Delivery Method Room Air 10/25/25 12:57 BMI result Body Mass Index 20.0 There are no Cushingoid features. Absence of blue sclera. Absence of kyphosis. Thyroid gland is of nl size and weighs 15 gms. There are no thyroid nodules palpated. Lungs CTA. Heart S1 S2 Reg R/R Abdominal exam benign. Muscle strength 5/5 . Examination of spine reveals absence of tenderness on palpation Assessment & Plan Assessment & Plan (1) Osteoporosis: Code(s): M81.0 - Age-related osteoporosis without current pathological fracture Category: Medical Plan: This is a 75-year-old white female with a history of moderate to severe osteoporosis with partial secondary workup Plan is to complete the secondary workup by checking 24 hour urine for calcium and creatinine, serum phosphorus level, urine immunofixation. Will ensure 1200 mg of calcium and vitamin-D supplementation. Assuming secondary workup was negative, would strongly favor the use of anabolic agent initially to be proceeded by an anti resorptive agent because this patient is a very high risk of fracture with very low bone Orders: Orders Calcium, 24 Hr Ur Today M85.80 - Other specified disorders of bone density and structure, unspecified site Immunofixation, Random Urine Today M85.80 - Other specified disorders of bone density and structure, unspecified site Phosphorus Today M85.80 - Other specified disorders of bone density and structure, unspecified site Creatinine, 24 Hr Group Today M85.80 - Other specified disorders of bone density and structure, unspecified site Coding Level of Care Code New Pt Level 4 (48695) Diagnoses Osteoporosis M81.0
== END 2025-10-25 13:43 | disposition home or self-care (01) ==
LOC: HO.ENCR 12:35
PROVIDERS: PCP Internal Medicine; Visit Provider Internal Medicine Endocrinology, Diabetes & Metabolism
DX: M81.0 Age-related osteoporosis without current pathological fracture (principal)
CPT/HCPCS: 99204

== ENCOUNTER → 2025-10-25 12:35 | Outpatient (BNVA) | payer OTHER, SELFPAY | PROVIDERS: PCP Internal Medicine; Visit Provider Internal Medicine Endocrinology, Diabetes & Metabolism | DX: M81.0 Age-related osteoporosis without current pathological fracture (principal) | CPT/HCPCS: 99202 ==